=== PATIENT | male | born 1955 | race Caucasian/White ===

== ENCOUNTER → 2016-10-28 | Outpatient (CLI) | payer OTHER ==
--- NOTE | ~2016-10-28 | MR3 ---
[facility] A Service of [facility] / [facility] RADIOLOGY TEXT RESULTS PATIENT: BC HOLLAND LOCATION: [facility] : 53 UNIT #: [id number] AGE: [address]: Omari Herbert Jr, MD SEX: M ORDER DR: [id number] [place] [address] [id number] O MR#: [id number] Acc #: [id number] NAME: BC HOLLAND : 1955 SEX: M STUDY DATE/TIME: 10/28/2016 11:17 UNIT: [facility] ROOM: STUDY DESCRIPTION: MR Abdomen Wo Contrast Attending Physician: Omari Herbert Jr., M.D. Referring Physician: Omari Herbert Jr., M.D. Ordering Physician: Omari Herbert Jr., M.D. Primary Care Physician: Generic Doctor Not In System MRI CENTER REPORT This report is preliminary unless electronic signature is present. EXAM MRI abdomen without contrast. HISTORY Indeterminate left adrenal nodule on previous CT. PROCEDURE Multiplanar multisequence MR imaging of the abdomen without the administration of contrast. COMPARISON STUDIES CT, 09/25/2016. FINDINGS 1.4-cm benign left adrenal adenoma. Previous left nephrectomy. Previously described fat necrosis in the left renal fossa measures 4.9 x 3.7 cm, previously 5.1 x 3.9 cm. Liver, spleen, right adrenal gland, right kidney, pancreas, and bowel loops have normal signal. Previous cholecystectomy. No bile duct dilation. IMPRESSION 1. 1.4-cm benign left adrenal adenoma. 2. Slight contraction of fat necrosis in the left renal fossa. Dictated by... Bunny Loza M.D. THIS IS AN ELECTRONICALLY VERIFIED REPORT [facility] A Service of [facility] / [facility] RADIOLOGY TEXT RESULTS PATIENT: BC HOLLAND LOCATION: [facility] : 53 UNIT #: [id number] AGE: [address]: Omari Herbert Jr, MD SEX: M ORDER DR: Bunny Loza M.D. at 10/29/2016 10:02 AM RICHELLE/saige TD: 10/28/2016 17:26 JOB #: [id number] MRI [facility]ENTER REPORT Page 1 of 1
== END | disposition home or self-care (01) ==
LOC: SMRI 10:45
DX: E27.8 Other specified disorders of adrenal gland (principal); D35.02 Benign neoplasm of left adrenal gland; N28.0 Ischemia and infarction of kidney
CPT/HCPCS: 74181